=== PATIENT | female | born 1990 | race Caucasian/White ===

== ENCOUNTER 2016-05-12 14:36 | Emergency (ER) | payer MEDICAID ==
[~2016-05-12 14:36] MED LIST: PRENTAB72 PO
[2016-05-12 15:46] LABS: BLOOD, URINE NEG (NEG); COMMENT (UR) CULT NOT INDICATED; CULTURE IF INDICATED CULT NOT INDICATED; GLUCOSE,URINE NEG (NEG); KETONE, URINE NEG (NEG); NITRITE,URINE NEG (NEG); SQUAMOUS EPITHELIAL CELL URINE 1 /hpf (0-5); URINE COLOR LIGHT-YELLOW (YELLW/STRAW)
--- NOTE | 2016-05-12 15:57 | PD ---
HPI Chief Complaint Spotting mucous-like blood crampy pain watery mucous discharge Date Seen: May 12, 2016 Travel History International Travel<30 Days: No Contact w/Intl Traveler<30Days: No History of Present Illness HPI Patient is a 26-year-old white female 30 weeks gestation followed by Yonatan presents complaining of red spotting mucous-like blood when she wiped cramping pains and a watery mucous discharge. States that ever had bleeding in for scheduled, check that out. Baby is active heart rate tracing is reactive she is not thony Para: 2 : 3 History Obstetric History Obstetric History 2 vaginal deliveries Family History Family History: Negative Social History Alcohol Use: No Tobacco Use: No Substance Abuse: No Allergies-Medications (Allergen,Severity, Reaction): Coded Allergies: No Known Allergies (Verified , 11/14/15) Home Meds Reported Medications Vit W/ Ferrous Fumara () Tab1 Po 11/14/15 Physical Exam Narrative GENERAL: Well-nourished, well-developed patient. SKIN: Warm and dry. HEAD: Normocephalic and atraumatic. EYES: No scleral icterus. No injection or drainage. ENT: No nasal drainage noted. Mucous membranes pink. Airway patent. NECK: Supple, trachea midline. No JVD. CARDIOVASCULAR: Regular rate and rhythm without murmurs, gallops, or rubs. RESPIRATORY: Breath sounds equal bilaterally. No accessory muscle use. BREASTS: Bilateral exam showed no masses , no retractions, no nipple discharge. ABDOMEN/GI: Abdomen soft, non-tender, bowel sounds present, no rebound, no guarding Gravid to [-30] weeks size Fundal Height: [-29 cm] GENITOURINARY: External Genitalia: intact and normal in appearance, speculum exam done - no blood seen , no discharge that would indicate infection BUS glands: [-] Cervix: [-Posterior] large patulous appears friable no bleeding seen Dilatation: [0-] Effacement: [-0] Station: [-3] Presentation: [-] Membranes: [intact ]amnisure neg Uterine Contractions: [none-] FHT's: Category: [1-] Baseline: [133-] Reactive: [yes-] Variability: [mod-] Decels: [-none] EXTREMITIES: No cyanosis or edema. BACK: Nontender without obvious deformity. No CVA tenderness. NEUROLOGICAL: Awake and alert. Motor and sensory grossly within normal limits. Five out of 5 muscle strength in all muscle groups. Normal speech. Data Data Orders Urinalysis - C+S If Indicated (05/12/16 15:19) Labs amnisure negative Laboratory Tests Test 05/12/16 14:55 Urine Color LIGHT-YELLOW Urine Turbidity HAZY Urine pH 6.0 Urine Specific [place] 1.007 Urine Protein NEG Urine Glucose (UA) NEG Urine Ketones NEG Urine Occult Blood NEG Urine Nitrite NEG Urine Bilirubin NEG Urine Urobilinogen LESS THAN 2.0 Urine Leukocyte Esterase NEG Urine WBC 1 Urine Squamous Epithelial 1 Cells Microscopic Urinalysis Comment CULT NOT INDICATED MDM Medical Record Reviewed: No Interpretation(s) 30 week intrauterine with the minimal spotting mucous-like discharge and a negative amnio sure, no contractions cervix is closed, urinalysis negative , speculum exam was negative for blood or infection cervix is large and patulous somewhat swollen which is typical at 30 weeks and I described to the patient that physical digital exams and intercourse because her spot, just distress lifting Valsalva maneuver type activity can cause her to spot Plan Plan to discharge the patient home to bedrest for a day or so, just to keep an eye on any spotting issuesreturn for bleeding similar to a period or ruptured membranes or significant pain Diagnosis Diagnosis: Primary Impression: Spotting affecting in third trimester Additional Impression: Vaginal discharge during in third trimester Disposition: 01 DISCHARGE HOME Condition: Stable Patient Instructions: General Instructions, Early Labor Signs (ED), 24 Hour Urine Collection (GEN), Abdominal Pain in (ED) Additional Instructions: keep scheduled follow up appointment Departure Forms: Tests/Procedures Abel Bravo II, MD May 12, 2016 15:57
== END 2016-05-12 16:17 | disposition home or self-care (01) ==
LOC: HOBED 14:36
DX: O26.853 Spotting complicating pregnancy, third trimester (principal); N89.8 Other specified noninflammatory disorders of vagina; Z3A.30 30 weeks gestation of pregnancy
CPT/HCPCS: 81001; 84112; 99284

== ENCOUNTER 2016-05-29 13:32 | Observation (INO) | payer MEDICAID ==
[2016-05-29] VITALS (24 sets, daily range): BP systolic 111–114; BP diastolic 62–63; PULSE 74–117; RESP 17–18; TEMP 97.9
[2016-05-29] MEDS ORDERED: LACTATED RINGER'S 1000 ML INJ 1,000 ML IV ONE (14:30)
--- NOTE | 2016-05-29 14:35 | PD ---
HPI Chief Complaint Contractions Date Seen: May 29, 2016 Time Seen: 14:20 Travel History International Travel<30 Days: No Contact w/Intl Traveler<30Days: No Known Affected Area: No History of Present Illness HPI 26-year-old 002 at 32 weeks and 6 days of gestation, EDC 07/18/16, patient presents to OB ED complaining of frequent contractions occurring every 2 -3 minutes. Contraction is confirmed on tocodynamometry, patient noted to have contractions every 2-3 minutes. Patient reports vaginal fluid discharge, she stated that she had intercourse this morning. Amnisure (PAMG-1) test is negative. Patient denies vaginal bleeding and decreased movement. care is with the [facility] group of physicians, course is significant for hyperthyroidism. Para: 2 : 3 Miscarriage: 0 : 0 History Past Medical History Narrative Medical Hyperthyroidism Obstetric History Obstetric History Spontaneous vaginal delivery 2 Past Surgical History Narrative Surgical Denies Surgical History: No Previous Surgery Family History Narrative Family History Patient does not know family history, both and herself are adopted Social History Alcohol Use: No Tobacco Use: No Substance Abuse: No Allergies-Medications (Allergen,Severity, Reaction): Coded Allergies: No Known Allergies (Verified , 11/14/15) Home Meds Reported Medications Vit W/ Ferrous Fumara () Tab1 Po 11/14/15 Review of Systems Except as stated in HPI: all other systems reviewed are Neg Genitourinary: Discharge, Other (contractions) Physical Exam Narrative GENERAL: Well-nourished, well-developed patient. SKIN: Warm and dry. HEAD: Normocephalic and atraumatic. EYES: No scleral icterus. No injection or drainage. ENT: No nasal drainage noted. Mucous membranes pink. Airway patent. NECK: Supple, trachea midline. No JVD. CARDIOVASCULAR: Regular rate and rhythm without murmurs, gallops, or rubs. RESPIRATORY: Breath sounds equal bilaterally. No accessory muscle use. BREASTS: Bilateral exam showed no masses , no retractions, no nipple discharge. ABDOMEN/GI: Abdomen soft, gravid, non-tender, bowel sounds present, no rebound, no guarding Gravid to 33 weeks size Fundal Height: 33 cm GENITOURINARY: External Genitalia: intact and normal in appearance BUS glands: Normal Cervix: 1 cm, 60%, -2 station, posterior Dilatation: 1cm Effacement: 60% Station: -2 Presentation: Cephalic Membranes: Intact Uterine Contractions: Every 2-3 minutes FHT's: Category: one Baseline: 150s Reactive: Yes Variability: Moderate Decels: None EXTREMITIES: No cyanosis or edema. BACK: Nontender without obvious deformity. No CVA tenderness. NEUROLOGICAL: Awake and alert. Motor and sensory grossly within normal limits. Five out of 5 muscle strength in all muscle groups. Normal speech. Data Data Vital Signs Reviewed: Yes Orders Vital Signs (Adult) .ON ADMISSION (05/29/16 14:21) ^ Labor Status (05/29/16 14:21) Urinalysis - C+S If Indicated (05/29/16 14:21) ^ Non Stress Test (05/29/16 14:21) ^ Hydration (05/29/16 14:21) Diet Regular Basic (05/29/16 Dinner) Pamg-1 Test .ONCE (05/29/16 14:21) Lactated Ringer's 1000 Ml Inj (Lr 1000 M (05/29/16 14:21) Ob/Psych Drug Screen, Urine (05/29/16 14:21) Lr (Bolus) Inj (05/29/16 14:30) Terbutaline Inj (Brethine Inj) (05/29/16 14:30) MDM Medical Record Reviewed: Yes Diagnosis Diagnosis: Primary Impression: 33 weeks gestation of Additional Impression: labor in third trimester without delivery Patient Instructions: Early Labor Signs (ED), General Instructions, Labor (ED) Additional Instructions: We'll place patient in observation, we'll give terbutaline 0.5 mg subcutaneously every 25 minutes 1 doses for tocolysis, and nifedipine thereafter if contractions persist, we'll give betamethasone 12 mg intramuscularly every 24 hours 2 doses for lung maturity, will give IV fluid hydration, will send urine drug screen , continuous heart monitoring , send blood work. If contractions resolve we'll discharge patient to home with instructions to his cramping, contractions, leakage of fluids, vaginal bleeding or decreased movement. Drink plenty of fluids. Monitor kick counts. Keep office appointment as scheduled. Return Pelvic rest and nothing in the vagina for 1 week.. Reexamination shows patient with persistent contractions unresolved with IV hydration and terbutaline, we will start nifedipine for tocolysis. We will admit patient for 24-hour observation. Dr. Carmona is notified Suresh Cisneros MD May 29, 2016 14:35
[2016-05-29] MEDS: TERBUTALINE INJ 1 MG/ML AMP SQ SCH ×2 (14:52→15:17)
[2016-05-29] MEDS: LACTATED RINGER'S 1000 ML INJ 1,000 ML IV SCH ×2 (15:23→23:36)
[2016-05-29] MEDS ORDERED: BETAMETHASONE SOD PHOS/ACETATE SUSP 30 MG/5 ML VIAL IM SCH (16:00)
[2016-05-29 16:44] LABS: AUTOMATED NEUTROPHIL # 8.1 TH/MM3 (1.8-7.7); BASOPHIL % 0.3 % (0.0-2.0); EOSINOPHIL # 0.2 TH/MM3 (0-0.4); EOSINOPHIL % 1.6 % (0.0-4.0); HEMATOCRIT 39.9 % (35.0-46.0); HEMO FLAGS DIFF FINAL; LYMPHOCYTE # 2.4 TH/MM3 (1.0-4.8); MEAN CELL VOLUME 88.9 FL (80.0-100.0); MEAN CORPUSCULAR HEMOGLOBIN 30.4 PG (27.0-34.0); MEAN CORPUSCULAR HGB CONC 34.2 % (32.0-36.0); NEUT % 72.1 % (16.0-70.0); PLATELET COUNT 306 TH/MM3 (150-450); RED BLOOD COUNT 4.48 MIL/MM3 (4.00-5.30); RED CELL DISTRIBUTION WIDTH 12.6 % (11.6-17.2); WHITE BLOOD COUNT 11.2 TH/MM3 (4.0-11.0)
[2016-05-29 16:55] LABS: AMPHETAMINE, URINE NEG (NEG); BARBITURATES, URINE NEG (NEG); COCAINE, URINE NEG (NEG)
[2016-05-29 16:58] LABS: BACTERIA, URINE RARE /hpf; BLOOD, URINE NEG (NEG); COMMENT (UR) CULT NOT INDICATED; CULTURE IF INDICATED CULT NOT INDICATED; GLUCOSE,URINE NEG (NEG); KETONE, URINE NEG (NEG); NITRITE,URINE NEG (NEG); SQUAMOUS EPITHELIAL CELL URINE 3 /hpf (0-5); URINE COLOR YELLOW (YELLW/STRAW)
[2016-05-29] MEDS ORDERED: NIFEdipine 10 MG CAP PO ONE (17:45)
[2016-05-29] MEDS ORDERED: PRENATAL VITAMIN CHEWABLE TAB CHEW SCH (17:45)
[2016-05-29] MEDS ORDERED: NIFEdipine 10 MG CAP PO SCH (18:00)
[2016-05-29] MEDS: NIFEdipine 10 MG CAP PO SCH (23:35)
[2016-05-30] VITALS (18 sets, daily range): BP systolic 101–105; BP diastolic 50–51; PULSE 72–104; RESP 16–20; TEMP 98–98.5
[2016-05-30] MEDS ORDERED: ACETAMINOPHEN 325 MG TAB PO PRN (01:15)
[2016-05-30] MEDS ORDERED: ZOLPIDEM TARTRATE 5 MG TAB PO PRN (01:15)
[2016-05-30] MEDS: LACTATED RINGER'S 1000 ML INJ 1,000 ML IV SCH (06:19)
[2016-05-30] MEDS: NIFEdipine 10 MG CAP PO SCH (06:19)
--- NOTE | 2016-05-30 08:07 | PD.OB.ANTE ---
Subjective Interval History Quiet night had mild UCs she did not feel no leaking, bleeding Ucs began after intercourse yesterday GFM Antepartum ROS: Denies: New complaints, Loss of fluid, Vaginal bleeding, movement normal, Contractions, Other Objective Vital Signs Vital Signs Date Time Temp Pulse Resp B/P Pulse Ox O2 Delivery O2 Flow Rate FiO2 05/30/16 06:23 100 105/51 05/30/16 05:55 79 05/30/16 05:00 16 05/30/16 04:55 74 05/30/16 03:55 79 05/30/16 02:55 89 05/30/16 01:55 103 05/30/16 01:08 18 05/30/16 00:55 73 05/30/16 00:00 98.5 05/29/16 23:55 111 05/29/16 23:34 18 05/29/16 23:30 108 05/29/16 23:28 111/63 05/29/16 19:58 97.9 05/29/16 19:57 18 05/29/16 19:57 99 114/62 05/29/16 17:10 107 05/29/16 17:05 104 05/29/16 17:00 96 05/29/16 16:40 95 05/29/16 16:35 96 05/29/16 16:30 106 05/29/16 16:00 17 05/29/16 15:55 116 05/29/16 15:50 115 05/29/16 15:45 116 05/29/16 15:10 114 05/29/16 15:05 101 05/29/16 15:00 88 05/29/16 14:40 88 05/29/16 14:35 87 05/29/16 14:30 117 05/29/16 14:10 74 05/29/16 14:05 78 Lab & Micro Results Test 05/29/16 15:00 White Blood Count 11.2 TH/MM3 Red Blood Count 4.48 MIL/MM3 Hemoglobin 13.6 GM/DL Hematocrit 39.9 % Mean Corpuscular Volume 88.9 FL Mean Corpuscular Hemoglobin 30.4 PG Mean Corpuscular Hemoglobin 34.2 % Concent Red Cell Distribution Width 12.6 % Platelet Count 306 TH/MM3 Mean Platelet Volume 8.8 FL Neutrophils (%) (Auto) 72.1 % Lymphocytes (%) (Auto) 21.0 % Monocytes (%) (Auto) 5.0 % Eosinophils (%) (Auto) 1.6 % Basophils (%) (Auto) 0.3 % Neutrophils # (Auto) 8.1 TH/MM3 Lymphocytes # (Auto) 2.4 TH/MM3 Monocytes # (Auto) 0.6 TH/MM3 Eosinophils # (Auto) 0.2 TH/MM3 Basophils # (Auto) 0.0 TH/MM3 CBC Comment DIFF FINAL Differential Comment Urine Color YELLOW Urine Turbidity CLEAR Urine pH 6.0 Urine Specific [place] 1.013 Urine Protein NEG mg/dL Urine Glucose (UA) NEG mg/dL Urine Ketones NEG mg/dL Urine Occult Blood NEG Urine Nitrite NEG Urine Bilirubin NEG Urine Urobilinogen LESS THAN 2.0 MG/DL Urine Leukocyte Esterase SMALL Urine WBC 1 /hpf Urine Squamous Epithelial 3 /hpf Cells Urine Bacteria RARE /hpf Microscopic Urinalysis Comment CULT NOT INDICATED Urine Opiates Screen NEG Urine Barbiturates Screen NEG Urine Amphetamines Screen NEG Urine Benzodiazepines Screen NEG Urine Cocaine Screen NEG Urine Cannabinoids Screen NEG Physical Exam GENERAL: Well-nourished, well-developed patient. CARDIOVASCULAR: Regular rate and rhythm without murmurs, gallops, or rubs. RESPIRATORY: Breath sounds equal bilaterally. No accessory muscle use. ABDOMEN/GI: Abdomen soft, non-tender. fundus c.w dates cervix 1 cm thick and firm strip reactive EXTREMITIES: No cyanosis or edema, non-tender, without signs of DVT. Assessment and Plan Assessment and Plan stable with premature contractions essentially resolved home after second betamethasone pelvic rest return to office weekly Deisy Ascencio MD May 30, 2016 08:07
--- NOTE | 2016-05-30 08:08 | HHI.DCPOC ---
Discharge Care Plan Report Symptoms to Your Doctor -Temperate above 100.5 degrees -Redness, of incision or excessive or foul smelling drainage -Unusual pain or calf pain -Increased vaginal bleeding -Painful or difficulty urinating -Feelings of extreme sadness or anxiety after 2 weeks Goals to Promote Your Health * To prevent worsening of your condition and complications * To maintain your health at the optimal level Directions to Meet Your Goals Take your medications as prescribed Follow your dietary instruction Follow activity as directed Ensure plenty of rest for recovery Drink fluids for hydration Keep your appointments as scheduled Take your immunizations and boosters as scheduled If your symptoms worsen call your PCP, if no PCP go to Urgent Care Center or Emergency Room Smoking is Dangerous to Your Health. Avoid second hand smoke Call the 24-hour crisis hotline for domestic abuse at Deisy Ascencio MD May 30, 2016 08:08
[2016-06-02 12:45] LABS: ECSTASY (MDMA) UR NEG (NEG); HEROIN (6-ACETYLMORPHINE) UR NEG (NEG); K2 SPICE UR NEG (NEG); OBMETHADONE UR NEG (NEG); PHENCYCLIDINE URINE NEG (NEG)
[2016-06-02 12:46] LABS: BATH SALTS (MDPV) UR NEG (NEG); OXYCODONE (PERCODAN) NEG (NEG)
== END 2016-05-30 10:20 | disposition home or self-care (01) ==
LOC: HOBED 13:32 → H2EA 17:31
PROVIDERS: ADMIT Obstetrics & Gynecology; ATTEND Obstetrics & Gynecology
DX: O60.03 Preterm labor without delivery, third trimester (principal); Z3A.32 32 weeks gestation of pregnancy
CPT/HCPCS: 59025; 80307; 81001; 84112; 85025; 96360; 96361; 96372; 99285; G0378; G0481; J0702; J3105; J7120

== ENCOUNTER 2016-06-05 15:12 | Emergency (ER) | payer MEDICAID ==
[~2016-06-05 15:12] MED LIST changes: -IBUP-232 PO
--- NOTE | 2016-06-05 16:30 | PD ---
HPI Chief Complaint vaginal leaking Date Seen: Jun 05, 2016 Time Seen: 16:00 Travel History International Travel<30 Days: No Contact w/Intl Traveler<30Days: No Known Affected Area: No History of Present Illness HPI 26yo at 34w1d c/o feeling "wet" on her pantiliner throughout the weekend. No gush of fluid, no odor, no itching. Was here overnight last week for contractions, cervix was 1cm. Para: 2 : 3 Last Menstrual Period: Oct 11, 2015 History Past Medical History Narrative Medical Graves - euthyroid presently Obstetric History Obstetric History Past Surgical History Narrative Surgical None Family History Family History: Negative Social History Alcohol Use: No Tobacco Use: No Substance Abuse: No Allergies-Medications (Allergen,Severity, Reaction): Coded Allergies: No Known Allergies (Verified , 11/14/15) Home Meds Reported Medications Vit W/ Ferrous Fumara () Tab1 Po 11/14/15 Review of Systems General / Constitutional: No: Fever, Weight Gain, Chills, Other Eyes: No: Diploplia, Blurred Vision, Visual changes, Pain, Photophobia Cardiovascular: No: Irregular Rhythm, Chest Pain or Discomfort, Palpitations, Tachycardia, Syncope, Varicosities, Edema, Cyanosis Respiratory: No: Cough, Short of Breath, Other Gastrointestinal: No: Nausea, Vomiting, Diarrhea Genitourinary: No: Decreased Urinary Output, Oliguria Musculoskeletal: No: Limited ROM, Weakness, Cramping, Edema, Pain Skin: No Rash, No Itching, No Dryness, No Lumps, No Change in Pigmentation, No Change in Nails, No Alopecia, No Lesions Neurologic: No: Weakness, Dizziness, Syncope, Focal Abnormalities, Coordination Problem, Headache, Slurred Speech, Seizures Psychiatric: No: Depression, Suicidal Ideations, Homicidal Ideation Physical Exam Narrative GENERAL: Well-nourished, well-developed patient. SKIN: Warm and dry. HEAD: Normocephalic and atraumatic. EYES: No scleral icterus. No injection or drainage. ENT: No nasal drainage noted. Mucous membranes pink. Airway patent. NECK: Supple, trachea midline. No JVD. CARDIOVASCULAR: Regular rate and rhythm without murmurs, gallops, or rubs. RESPIRATORY: Breath sounds equal bilaterally. No accessory muscle use. BREASTS: Bilateral exam showed no masses , no retractions, no nipple discharge. ABDOMEN/GI: Abdomen soft, non-tender, bowel sounds present, no rebound, no guarding Gravid to 34weeks size Fundal Height: [-] GENITOURINARY: External Genitalia: intact and normal in appearance BUS glands: normal Cervix: posterior Dilatation: 1 Effacement: 50 Station: -2 Presentation: vertex Membranes: amnisure negative (intact) Uterine Contractions: absent FHT's: Category: [-] 1 Baseline: [-] 140 Reactive: [-] reactive Variability: [-] moderate Decels: [-] absent EXTREMITIES: No cyanosis or edema. BACK: Nontender without obvious deformity. No CVA tenderness. NEUROLOGICAL: Awake and alert. Motor and sensory grossly within normal limits. Five out of 5 muscle strength in all muscle groups. Normal speech. Data Data Vital Signs Reviewed: Yes [facility] Medical Record Reviewed: Yes Plan Discharge home with followup at OB office Diagnosis Diagnosis: Primary Impression: 34 weeks gestation of Additional Impression: Intact amniotic membranes during in third trimester Karey Mckeon MD Jun 05, 2016 16:17
== END 2016-06-05 16:31 | disposition home or self-care (01) ==
LOC: HOBED 15:12
DX: O26.893 Other specified pregnancy related conditions, third trimester (principal); Z3A.34 34 weeks gestation of pregnancy
CPT/HCPCS: 59025; 84112

== ENCOUNTER → 2016-06-05 | Outpatient (CLI) | payer MEDICAID ==
[~2016-06-05] MED LIST changes: +IBUP-232 PO
== END ==
LOC: CLAB 10:39
PROVIDERS: ATTEND Obstetrics & Gynecology
DX: Z67.41 Type O blood, Rh negative (principal); Z3A.31 31 weeks gestation of pregnancy
CPT/HCPCS: 36415; 86850; 86900; 86901; 90384; 96372; J2790

== ENCOUNTER 2016-06-23 17:43 | Inpatient (IN) | payer MEDICAID ==
[~2016-06-23] VITALS: Ht 165.1 cm; Wt 70.8 kg
[2016-06-23] MEDS ORDERED: LACTATED RINGER'S 1000 ML INJ 1,000 ML IV PRN (18:43)
--- NOTE | 2016-06-23 18:43 | HHI.HP ---
HPI Chief Complaint water Broke and contractions Date Seen: Jun 23, 2016 Travel History International Travel<30 Days: No Contact w/Intl Traveler<30Days: No Known Affected Area: No History of Present Illness HPI This patient is 26-year-old white she is a white female who is a at 36-1/ 2 weeks with spontaneous ruptured membranes and early labor. No vaginal bleeding noted baby is active heart rate tracing is reactive she is thony every 2-3 minutes. Para: 2 : 3 History Past Medical History Medical History: Denies Significant Hx Social History Alcohol Use: No Tobacco Use: No Substance Abuse: No Allergies-Medications (Allergen,Severity, Reaction): Coded Allergies: No Known Allergies (Verified , 11/14/15) Home Meds Reported Medications Vit W/ Ferrous Fumara () Tab1 Po 11/14/15 Review of Systems General / Constitutional: No: Fever, Weight Gain, Chills, Other Eyes: No: Diploplia, Blurred Vision, Visual changes, Pain, Photophobia HENT: No: Headaches, Vertigo, Lightheadedness Cardiovascular: No: Irregular Rhythm, Chest Pain or Discomfort, Palpitations, Tachycardia, Syncope, Varicosities, Edema, Cyanosis Respiratory: No: Cough, Short of Breath, Other Gastrointestinal: No: Nausea, Vomiting, Diarrhea Genitourinary: No: Decreased Urinary Output, Oliguria Musculoskeletal: No: Limited ROM, Weakness, Cramping, Edema, Pain Skin: No Rash, No Itching, No Dryness, No Lumps, No Change in Pigmentation, No Change in Nails, No Alopecia, No Lesions Neurologic: No: Weakness, Dizziness, Syncope, Focal Abnormalities, Coordination Problem, Headache, Slurred Speech, Seizures Psychiatric: No: Depression, Suicidal Ideations, Homicidal Ideation Endocrine: No: Heat Intolerance, Cold Intolerance, Polydipsia, Polyuria, Other Physical Exam Narrative GENERAL: Well-nourished, well-developed patient. SKIN: Warm and dry. HEAD: Normocephalic and atraumatic. EYES: No scleral icterus. No injection or drainage. ENT: No nasal drainage noted. Mucous membranes pink. Airway patent. NECK: Supple, trachea midline. No JVD. CARDIOVASCULAR: Regular rate and rhythm without murmurs, gallops, or rubs. RESPIRATORY: Breath sounds equal bilaterally. No accessory muscle use. BREASTS: Bilateral exam showed no masses , no retractions, no nipple discharge. ABDOMEN/GI: Abdomen soft, non-tender, bowel sounds present, no rebound, no guarding Gravid to [36-] weeks size Fundal Height: [-36] GENITOURINARY: External Genitalia: intact and normal in appearance BUS glands: [-] Cervix: [2-] Dilatation: [-2] Effacement: [ 60] Station: [-3] Presentation: [-vtx] Membranes: ruptured] Uterine Contractions: [-reg] FHT's: Category: [1-] Baseline: [-144] Reactive: [yes-] Variability: [-mod] Decels: [none] EXTREMITIES: No cyanosis or edema. BACK: Nontender without obvious deformity. No CVA tenderness. NEUROLOGICAL: Awake and alert. Motor and sensory grossly within normal limits. Five out of 5 muscle strength in all muscle groups. Normal speech. Data Data Orders Ob (2e) Additional Admit Info (06/23/16 18:19) Assessment/Plan Assessment and Plan The patient is a 26-year-old white female followed Dr. Galloway for care she's 36-1/2 weeks complaining of spontaneous rupture membranes and early labor. Heart rate tracing is reactive contractions are noted. amnisure positive. Lattice admit the patient for labor augmentation and anticipate vaginal delivery with call Dr. Abarca was covering and I per her physician Abel Bravo II, MD Jun 23, 2016 18:42
[2016-06-23] MEDS ORDERED: LIDOCAINE HCL 1% 50 ML VIAL I-DERMAL PRN (18:45)
[2016-06-23] MEDS ORDERED: OXYTOCIN 30 UNITS-500ML PREMIX 500 ML IV ONE (18:45)
[2016-06-23] MEDS ORDERED: LIDOCAINE HCL 1% 50 ML VIAL INFIL PRN (18:45)
[2016-06-23] MEDS ORDERED: MINERAL OIL 10 ML VIAL TOPICAL PRN (18:45)
[2016-06-23] MEDS ORDERED: OXYTOCIN 30 UNITS-500ML PREMIX 500 ML IV SCH (18:45)
[2016-06-23] MEDS ORDERED: CITRIC ACID-SODIUM CITRATE LIQ 30 ML UDC PO SCH (18:45)
[2016-06-23] MEDS ORDERED: SODIUM CHLORID 0.9% 500 ML INJ 500 ML IV PRN (18:45)
[2016-06-23 18:52] LABS: AUTOMATED NEUTROPHIL # 10.1 TH/MM3 (1.8-7.7); BASOPHIL # 0.1 TH/MM3 (0-0.2); BASOPHIL % 0.5 % (0.0-2.0); EOSINOPHIL # 0.1 TH/MM3 (0-0.4); HEMO FLAGS DIFF FINAL; LYMPH % 18.5 % (9.0-44.0); LYMPHOCYTE # 2.5 TH/MM3 (1.0-4.8); MEAN CELL VOLUME 88.5 FL (80.0-100.0); MONO % 5.6 % (0.0-8.0); NEUT % 74.4 % (16.0-70.0); PLATELET COUNT 244 TH/MM3 (150-450); RED BLOOD COUNT 4.29 MIL/MM3 (4.00-5.30); RED CELL DISTRIBUTION WIDTH 13.5 % (11.6-17.2); WHITE BLOOD COUNT 13.6 TH/MM3 (4.0-11.0)
[2016-06-23 18:55] LABS: BLOOD, URINE NEG (NEG); COMMENT (UR) CULT NOT INDICATED; CULTURE IF INDICATED CULT NOT INDICATED; GLUCOSE,URINE NEG (NEG); KETONE, URINE NEG (NEG); MUCUS URINE FEW /lpf (OCC); NITRITE,URINE NEG (NEG); PH, URINE 5.5 (5.0-8.5); SQUAMOUS EPITHELIAL CELL URINE 3 /hpf (0-5); URINE COLOR YELLOW (YELLW/STRAW)
[2016-06-23] MEDS ORDERED: PENICILLIN G POTASSIUM INJ 5,000,000 UNITS in SODIUM CHLORIDE 0.9% INJ 100 ML IV ONE (19:00)
[2016-06-23] MEDS ORDERED: SODIUM CHLOR 0.9% 1000 ML INJ 1,000 ML IV PRN (19:03)
[2016-06-23] MEDS: LACTATED RINGER'S 1000 ML INJ 1,000 ML IV SCH ×2 (19:41→23:12)
[2016-06-23 20:36] VITALS: TEMP 98.2
[2016-06-23 20:37] VITALS: RESP 18
[2016-06-23 20:38] VITALS: BP 110/63; PULSE 74
[2016-06-23] MEDS: PENICILLIN G POTASSIUM INJ 2,500,000 UNITS in SODIUM CHLORIDE 0.9% INJ 100 ML IV SCH ×2 (23:11→23:12)
[2016-06-24] MEDS ORDERED: fentaNYL 2MCG-BUPIV 0.125% INJ 100 ML ONE (00:17)
[2016-06-24 00:23] VITALS: RESP 18
--- NOTE | 2016-06-24 03:33 | PD.OB.DELI ---
Anesthesia: Epidural Episiotomy: None Vaginal Delivery: Normal Presentation: Occiput anterior Nuchal Cord: x1 Delayed cord clamping (45 sec): Yes : Female One Minute : 8 Five Minute : 9 Infant Care: Suctioned, Spontaneous crying Placenta: Spontaneous delivery, Intact, 3 vessel cord Laceration: No lacerations James Abarca MD Jun 24, 2016 03:33
[2016-06-24] MEDS ORDERED: BENZOCAINE 20% TOPICAL SPRAY 60 ML CAN TOPICAL PRN (03:45)
[2016-06-24] MEDS ORDERED: DOCUSATE SODIUM 50 MG/SENNA 8.6 MG TAB PO PRN (03:45)
[2016-06-24] MEDS ORDERED: WITCH HAZEL 50%/GLYCERIN 12.5% 40 PAD JAR TOPICAL PRN (03:45)
[2016-06-24] MEDS ORDERED: ALUMINUM/MAGNESIUM/SIMETH 30 ML CUP PO PRN (03:45)
[2016-06-24] MEDS ORDERED: OXYTOCIN 10 UNIT/ML AMP XX ONE (03:45)
[2016-06-24] MEDS ORDERED: SODIUM CHLORIDE 0.9% FLUSH 5 ML FLUSH IV PRN (03:45)
[2016-06-24] MEDS ORDERED: ONDANSETRON ODT 4 MG TAB PO PRN (03:45)
[2016-06-24] MEDS ORDERED: ZOLPIDEM TARTRATE 5 MG TAB PO PRN (03:45)
[2016-06-24] MEDS ORDERED: NO SYSTEM NARCOTICS XX PRN (04:00)
[2016-06-24] MEDS ORDERED: DO NOT ADMINISTER ANTICOAGULANTS XX PRN (04:00)
[2016-06-24] MEDS ORDERED: ePHEDrine/NS 25 MG/5 ML SYR IV PRN (04:00)
[2016-06-24] MEDS ORDERED: fentaNYL 2MCG-BUPIV 0.125% 100 ML EPIDURAL SCH (04:00)
[2016-06-24] MEDS: ACETAMINOPHEN 325 MG TAB PO PRN ×4 (06:03→22:02)
--- NOTE | 2016-06-24 11:20 | HHI.OB ---
Subjective Post Day: 0 Remarks Doing well,stable Objective Vitals/I&O Vital Signs Date Time Temp Pulse Resp B/P Pulse Ox O2 Delivery O2 Flow Rate FiO2 06/24/16 00:23 18 06/23/16 20:38 74 110/63 06/23/16 20:37 18 06/23/16 20:36 98.2 Objective Remarks GENERAL: Well-nourished, well-developed patient. CARDIOVASCULAR: Regular rate and rhythm without murmurs, gallops, or rubs. RESPIRATORY: Breath sounds equal bilaterally. No accessory muscle use. ABDOMEN/GI: Abdomen soft, non-tender. Fundus: Firm, non-tender at umbilicus. GENITOURINARY: Light to moderate bleeding. EXTREMITIES: No cyanosis or edema, non-tender, without signs of DVT. Medications and IVs Current Medications Medications (Trade) Dose Ordered Sig/Calli Route Start Time Stop Time Status Last Admin Lactated Ringer's 1,000 ml @ 125 mls/hr Q8H IV 06/23/16 18:43 06/23/16 23:12 Lactated Ringer's 1,000 ml @ 3,000 mls/hr Q20M PRN IV 06/23/16 18:43 Sodium Chloride 500 ml @ 1,000 mls/hr ONCE PRN IV 06/23/16 18:45 06/24/16 18:44 (NS 1000 ml Inj) 1,000 ml @ 100 mls/hr Q10H PRN IV 06/23/16 19:03 (fentaNYL INJ) 50 mcg Q1H PRN IV PUSH 06/23/16 18:45 Fentanyl Citrate 100 mcg 100 mcg Q1H PRN IV PUSH 06/23/16 18:45 (Pfizerpen-G Inj/ NS Inj) 100 ml @ 200 mls/hr Q4H IV 06/23/16 23:00 06/23/16 23:12 Mineral Oil 10 ml 10 ml UNSCH PRN TOPICAL 06/23/16 18:45 (Pitocin 30 Units-NS 500 ml Premix) 500 ml @ 0 mls/hr TITRATE IV 06/23/16 18:45 06/24/16 04:42 (NS Flush) 2 ml BID IV 06/24/16 09:00 (NS Flush) 2 ml UNSCH PRN IV 06/24/16 03:45 (Tylenol) 650 mg Q4H PRN PO 06/24/16 03:45 06/24/16 06:03 (Motrin) 600 mg Q6H PRN PO 06/24/16 03:45 (Americaine 20% Top Spr) 1 spray Q4H PRN TOPICAL 06/24/16 03:45 (Tucks Pads) 1 applic QID PRN TOPICAL 06/24/16 03:45 (Giovanna-Colace) 2 tab Q12H PRN PO 06/24/16 03:45 (Ambien) 5 mg HS PRN PO 06/24/16 03:45 (M-M-R Ii Inj) 0.5 ml ONCE ONCE SQ 06/24/16 16:00 06/24/16 16:01 (Boostrix Inj) 0.5 ml ONCE ONCE IM 06/24/16 16:00 06/24/16 16:01 (Mag-Al Plus Susp Liq) 15 ml Q8H PRN PO 06/24/16 03:45 (Zofran Odt) 4 mg Q6H PRN PO 06/24/16 03:45 Miscellaneous Information No systemic narcotics to be given except... UNSCH PRN XX 06/24/16 04:00 06/25/16 03:59 Miscellaneous Information DO NOT ADMINISTER ANY ANTICOAGUL... UNSCH PRN XX 06/24/16 04:00 06/25/16 03:59 (fentaNYL 2MCG-BUPIV 0.125% INJ) 100 ml @ 0 mls/hr TITRATE EPIDURAL 06/24/16 04:00 (ePHEDrine/NS 25 MG/5 ML SYR) 10 mg UNSCH PRN IV 06/24/16 04:00 06/25/16 03:59 Assessment/Plan Assessment and Plan PPD#0, Stable, stable, History GBS+ Discharge Planning Does not meet criteria Attending Attestation seen by James Beard MD Jun 24, 2016 11:19
[2016-06-24] MEDS: IBUPROFEN 600 MG TAB PO PRN ×2 (11:30→17:54)
[2016-06-24] MEDS ORDERED: MEASLES, MUMPS, RUBELLA VACCINE 0.5 ML VIAL SQ ONE (16:00)
[2016-06-24] MEDS ORDERED: DIPHTH/TETANUS/ACEL PERTUSSIS (BOOSTER) 0.5 ML VIAL/PFS IM ONE (16:00)
[2016-06-24] MEDS: SODIUM CHLORIDE 0.9% FLUSH 5 ML FLUSH IV SCH (20:42)
[2016-06-25] MEDS: IBUPROFEN 600 MG TAB PO PRN ×5 (00:08→22:54)
[2016-06-25] MEDS: ACETAMINOPHEN 325 MG TAB PO PRN ×5 (05:22→22:54)
--- NOTE | 2016-06-25 08:46 | HHI.OB ---
Subjective Post Day: 1 Remarks doing well. third baby no stitches not nursing Objective Objective Remarks GENERAL: Well-nourished, well-developed patient. CARDIOVASCULAR: Regular rate and rhythm without murmurs, gallops, or rubs. RESPIRATORY: Breath sounds equal bilaterally. No accessory muscle use. ABDOMEN/GI: Abdomen soft, non-tender. Fundus: Firm, non-tender at umbilicus. GENITOURINARY: Light to moderate bleeding. EXTREMITIES: No cyanosis or edema, non-tender, without signs of DVT. Medications and IVs Current Medications Medications (Trade) Dose Ordered Sig/Calli Route Start Time Stop Time Status Last Admin Lactated Ringer's 1,000 ml @ 125 mls/hr Q8H IV 06/23/16 18:43 06/23/16 23:12 Lactated Ringer's 1,000 ml @ 3,000 mls/hr Q20M PRN IV 06/23/16 18:43 (NS 1000 ml Inj) 1,000 ml @ 100 mls/hr Q10H PRN IV 06/23/16 19:03 (fentaNYL INJ) 50 mcg Q1H PRN IV PUSH 06/23/16 18:45 Fentanyl Citrate 100 mcg 100 mcg Q1H PRN IV PUSH 06/23/16 18:45 (Pfizerpen-G Inj/ NS Inj) 100 ml @ 200 mls/hr Q4H IV 06/23/16 23:00 06/23/16 23:12 Mineral Oil 10 ml 10 ml UNSCH PRN TOPICAL 06/23/16 18:45 (Pitocin 30 Units-NS 500 ml Premix) 500 ml @ 0 mls/hr TITRATE IV 06/23/16 18:45 06/24/16 04:42 (NS Flush) 2 ml BID IV 06/24/16 09:00 (NS Flush) 2 ml UNSCH PRN IV 06/24/16 03:45 (Tylenol) 650 mg Q4H PRN PO 06/24/16 03:45 06/25/16 05:22 (Motrin) 600 mg Q6H PRN PO 06/24/16 03:45 06/25/16 05:21 (Americaine 20% Top Spr) 1 spray Q4H PRN TOPICAL 06/24/16 03:45 06/24/16 20:24 (Tucks Pads) 1 applic QID PRN TOPICAL 06/24/16 03:45 06/24/16 20:24 (Giovanna-Colace) 2 tab Q12H PRN PO 06/24/16 03:45 (Ambien) 5 mg HS PRN PO 06/24/16 03:45 06/25/16 00:08 (Mag-Al Plus Susp Liq) 15 ml Q8H PRN PO 06/24/16 03:45 Ondansetron HCl 4 mg 4 mg Q6H PRN PO 06/24/16 03:45 (fentaNYL 2MCG-BUPIV 0.125% INJ) 100 ml @ 0 mls/hr TITRATE EPIDURAL 06/24/16 04:00 Assessment/Plan Assessment and Plan PPD#1;Stable, infant stable, History GBS+ Discharge Planning Discharge home on saturday Deisy Ascencio MD Jun 25, 2016 08:46
[2016-06-25] MEDS: SODIUM CHLORIDE 0.9% FLUSH 5 ML FLUSH IV SCH (09:00)
[2016-06-26] MEDS: ACETAMINOPHEN 325 MG TAB PO PRN ×2 (02:46→08:53)
[2016-06-26] MEDS: IBUPROFEN 600 MG TAB PO PRN ×2 (04:43→10:48)
[2016-06-26] MEDS: PENICILLIN G POTASSIUM INJ 2,500,000 UNITS in SODIUM CHLORIDE 0.9% INJ 100 ML IV SCH ×2 (07:00→11:00)
[2016-06-26] MEDS ORDERED: IBUP-232 PO (08:16)
--- NOTE | 2016-06-26 08:16 | HHI.DCPOC ---
Discharge Care Plan Diagnosis: (1) delivery Your Health Problems Are: Vaginal delivery Report Symptoms to Your Doctor -Temperate above 100.5 degrees -Redness, of incision or excessive or foul smelling drainage -Unusual pain or calf pain -Increased vaginal bleeding -Painful or difficulty urinating -Feelings of extreme sadness or anxiety after 2 weeks Goals to Promote Your Health * To prevent worsening of your condition and complications * To maintain your health at the optimal level Directions to Meet Your Goals Take your medications as prescribed Follow your dietary instruction Follow activity as directed Ensure plenty of rest for recovery Drink fluids for hydration Keep your appointments as scheduled Take your immunizations and boosters as scheduled If your symptoms worsen call your PCP, if no PCP go to Urgent Care Center or Emergency Room Smoking is Dangerous to Your Health. Avoid second hand smoke Call the 24-hour crisis hotline for domestic abuse at Alina Galloway MD Jun 26, 2016 08:16
--- NOTE | 2016-06-26 08:18 | HHI.OB ---
Subjective Post Day: 2 Remarks Doing well, min lochia Objective Objective Remarks GENERAL: Well-nourished, well-developed patient. CARDIOVASCULAR: Regular rate and rhythm without murmurs, gallops, or rubs. RESPIRATORY: Breath sounds equal bilaterally. No accessory muscle use. ABDOMEN/GI: Abdomen soft, non-tender. Fundus: Firm, non-tender at umbilicus. GENITOURINARY: Light to moderate bleeding. EXTREMITIES: No cyanosis or edema, non-tender, without signs of DVT. Medications and IVs Current Medications Medications (Trade) Dose Ordered Sig/Calli Route Start Time Stop Time Status Last Admin Lactated Ringer's 1,000 ml @ 125 mls/hr Q8H IV 06/23/16 18:43 06/23/16 23:12 Lactated Ringer's 1,000 ml @ 3,000 mls/hr Q20M PRN IV 06/23/16 18:43 (NS 1000 ml Inj) 1,000 ml @ 100 mls/hr Q10H PRN IV 06/23/16 19:03 (fentaNYL INJ) 50 mcg Q1H PRN IV PUSH 06/23/16 18:45 Fentanyl Citrate 100 mcg 100 mcg Q1H PRN IV PUSH 06/23/16 18:45 (Pfizerpen-G Inj/ NS Inj) 100 ml @ 200 mls/hr Q4H IV 06/23/16 23:00 06/23/16 23:12 Mineral Oil 10 ml 10 ml UNSCH PRN TOPICAL 06/23/16 18:45 (Pitocin 30 Units-NS 500 ml Premix) 500 ml @ 0 mls/hr TITRATE IV 06/23/16 18:45 06/24/16 04:42 (NS Flush) 2 ml BID IV 06/24/16 09:00 (NS Flush) 2 ml UNSCH PRN IV 06/24/16 03:45 (Tylenol) 650 mg Q4H PRN PO 06/24/16 03:45 06/26/16 02:46 (Motrin) 600 mg Q6H PRN PO 06/24/16 03:45 06/26/16 04:43 (Americaine 20% Top Spr) 1 spray Q4H PRN TOPICAL 06/24/16 03:45 06/24/16 20:24 (Tucks Pads) 1 applic QID PRN TOPICAL 06/24/16 03:45 06/24/16 20:24 (Giovanna-Colace) 2 tab Q12H PRN PO 06/24/16 03:45 06/25/16 14:30 (Ambien) 5 mg HS PRN PO 06/24/16 03:45 06/25/16 00:08 (Mag-Al Plus Susp Liq) 15 ml Q8H PRN PO 06/24/16 03:45 Ondansetron HCl 4 mg 4 mg Q6H PRN PO 06/24/16 03:45 (fentaNYL 2MCG-BUPIV 0.125% INJ) 100 ml @ 0 mls/hr TITRATE EPIDURAL 06/24/16 04:00 Assessment/Plan Assessment and Plan PPD#2;Stable, stable d/c today Alina Galloway MD Jun 26, 2016 08:18
[2016-06-26] MEDS: SODIUM CHLORIDE 0.9% FLUSH 5 ML FLUSH IV SCH (08:47)
[2016-06-26] MEDS: LACTATED RINGER'S 1000 ML INJ 1,000 ML IV SCH (08:47)
== END 2016-06-26 11:50 | disposition home or self-care (01) | DRG 775 ==
LOC: HOBED 17:43 → H2EB 18:25 → H1EA 06-24 08:25
PROVIDERS: ADMIT Obstetrics & Gynecology; ATTEND Obstetrics & Gynecology
PROC: 10E0XZZ Delivery of Products of Conception, External Approach (ICD-10-PCS; principal; 2016-06-24)
PROC: 00HU33Z Insertion of Infusion Device into Spinal Canal, Percutaneous Approach (ICD-10-PCS; 2016-06-24)
PROC: 3E0R3CZ (ICD-10-PCS; 2016-06-24)
DX: O69.81X0 Labor and delivery complicated by cord around neck, without compression, not applicable or unspecified (principal); O99.824 Streptococcus B carrier state complicating childbirth; Z37.0 Single live birth; Z3A.36 36 weeks gestation of pregnancy
CPT/HCPCS: 81001; 84112; 85025; 85461; 86077; 86850; 86870; 86900; 86901; 90384; 99285; J2540; J2590; J2790; J7120

== ENCOUNTER 2016-10-16 17:05 | Emergency (ER) | payer SELFPAY ==
[~2016-10-16] VITALS: Ht 165.1 cm; Wt 63.2 kg
[~2016-10-16 17:05] MED LIST changes: +IBUP-232 PO
[2016-10-16 17:21] VITALS: BP 124/75; PULSE 112; RESP 16; TEMP 98; O2SAT 99
--- NOTE | 2016-10-16 17:25 | PD ---
HPI Chief Complaint: Abdominal Pain Time Seen by Provider: 17:15 Travel History International Travel<30 days: No Contact w/Intl Traveler<30days: No Traveled to known affect area: No History of Present Illness HPI 26yo F with no PMH presents to the ED with c/o epigastric, RUQ pain for 1 week. States it is intermittent, and worst about 30 minutes after eating. +Nausea. Denies any fever, chest pain, sob, vomiting, focal weakness or numbness. Took peptol bismol and did not help. PFSH Past Medical History ADHD: No Cancer: No Cardiovascular Problems: No Diabetes: No Diminished Hearing: No Endocrine: Yes (hyperthyroidism) Headaches: No Hepatitis: No Psychiatric: No Immunizations Current: Yes Migraines: Yes Seizures: Yes Thyroid Disease: Yes (hyperactive thyroid) Ulcer: No ?: Not LMP: last week Menopausal: No : 2 Para: 2 Past Surgical History Appendectomy: No Section: No Cholecystectomy: No Other Surgery: No Social History Alcohol Use: No Tobacco Use: No Substance Use: No Allergies-Medications (Allergen,Severity, Reaction): Coded Allergies: No Known Allergies (Verified , 10/16/16) Reported Meds & Prescriptions Reported Meds & Active Scripts Active Review of Systems Except as stated in HPI: all other systems reviewed are Neg Physical Exam Narrative GENERAL: 26yo F not in distress. SKIN: Focused skin assessment warm/dry. HEAD: Atraumatic. Normocephalic. EYES: Pupils equal and round. No scleral icterus. No injection or drainage. ENT: No nasal bleeding or discharge. Mucous membranes pink and moist. NECK: Trachea midline. No JVD. CARDIOVASCULAR: Regular rate and rhythm. No murmur appreciated. RESPIRATORY: No accessory muscle use. Clear to auscultation. Breath sounds equal bilaterally. GASTROINTESTINAL: Abdomen soft, mild RUQ ttp. No rebound tenderness or guarding. No RLQ pain. MUSCULOSKELETAL: No obvious deformities. No clubbing. No cyanosis. No edema. NEUROLOGICAL: Awake and alert. No obvious cranial nerve deficits. Motor grossly within normal limits. Normal speech. PSYCHIATRIC: Appropriate mood and affect; insight and judgment normal. Data Data Last Documented VS Vital Signs Date Time Temp Pulse Resp B/P Pulse Ox O2 Delivery O2 Flow Rate FiO2 10/16/16 18:40 16 10/16/16 18:07 98 119/60 98 Room Air 10/16/16 17:21 98.0 Orders Basic Metabolic Panel (Bmp) (10/16/16 17:22) Complete Blood Count With Diff (10/16/16 17:22) Lipase (10/16/16 17:22) Urinalysis - C+S If Indicated (10/16/16 17:22) Us Abdomen Gallbladder (10/16/16 ) Iv Access Insert/Monitor (10/16/16 17:22) Ecg Monitoring (10/16/16 17:22) Oximetry (10/16/16 17:22) Sodium Chloride 0.9% Flush (Ns Flush) (10/16/16 17:30) Ed Urine Pregnancytest Poc (10/16/16 17:22) Hepatic Functional Panel (10/16/16 17:22) Ondansetron Inj (Zofran Inj) (10/16/16 17:30) Ketorolac Inj (Toradol Inj) (10/16/16 17:30) Labs Laboratory Tests Test 10/16/16 10/16/16 17:36 17:41 Urine Collection Type CLEAN CATCH Urine Color YELLOW Urine Turbidity CLEAR Urine pH 6.5 Urine Specific [place] 1.027 Urine Protein NEG mg/dL Urine Glucose (UA) NEG mg/dL Urine Ketones TRACE mg/dL Urine Occult Blood NEG Urine Nitrite NEG Urine Bilirubin NEG Urine Leukocyte Esterase NEG Urine WBC 3-5 /hpf Urine Squamous Epithelial > 8 /hpf Cells Urine Bacteria RARE /hpf Microscopic Urinalysis Comment CULT NOT INDICATED Urine Collection Time 17:36 White Blood Count 6.5 TH/MM3 Red Blood Count 4.89 MIL/MM3 Hemoglobin 14.3 GM/DL Hematocrit 42.0 % Mean Corpuscular Volume 85.9 FL Mean Corpuscular Hemoglobin 29.2 PG Mean Corpuscular Hemoglobin 34.0 % Concent Red Cell Distribution Width 10.6 % Platelet Count 339 TH/MM3 Mean Platelet Volume 8.0 FL Neutrophils (%) (Auto) 56.1 % Lymphocytes (%) (Auto) 31.7 % Monocytes (%) (Auto) 7.1 % Eosinophils (%) (Auto) 4.0 % Basophils (%) (Auto) 1.1 % Neutrophils # (Auto) 3.5 TH/MM3 Lymphocytes # (Auto) 2.1 TH/MM3 Monocytes # (Auto) 0.5 TH/MM3 Eosinophils # (Auto) 0.3 TH/MM3 Basophils # (Auto) 0.1 TH/MM3 CBC Comment DIFF FINAL Differential Comment Sodium Level 142 MEQ/L Potassium Level 3.8 MEQ/L Chloride Level 107 MEQ/L Carbon Dioxide Level 25.7 MEQ/L Anion Gap 9 MEQ/L Blood Urea Nitrogen 17 MG/DL Creatinine 0.51 MG/DL Estimat Glomerular Filtration 148 ML/MIN Rate Random Glucose 101 MG/DL Calcium Level 9.4 MG/DL Total Bilirubin 0.3 MG/DL Direct Bilirubin 0.1 MG/DL Indirect Bilirubin 0.2 MG/DL Aspartate Amino Transf 17 U/L (AST/SGOT) Alanine Aminotransferase 41 U/L (ALT/SGPT) Alkaline Phosphatase 93 U/L Total Protein 7.3 GM/DL Albumin 3.6 GM/DL Lipase 155 U/L [facility] Medical Decision Making Medical Screen Exam Complete: Yes Emergency Medical Condition: Yes Interpretation(s) Laboratory Tests Test 10/16/16 10/16/16 17:36 17:41 Urine Collection Type CLEAN CATCH Urine Color YELLOW (YELLW/STRAW) Urine Turbidity CLEAR (CLEAR) Urine pH 6.5 (5.0-8.5) Urine Specific [place] 1.027 (1.002-1.035) Urine Protein NEG mg/dL (NEG-TRACE) Urine Glucose (UA) NEG mg/dL (NEG) Urine Ketones TRACE mg/dL (NEG) Urine Occult Blood NEG (NEG) Urine Nitrite NEG (NEG) Urine Bilirubin NEG (NEG) Urine Leukocyte Esterase NEG (NEG) Urine WBC 3-5 /hpf (0-5) Urine Squamous Epithelial > 8 /hpf (0-5) Cells Urine Bacteria RARE /hpf (NONE) Microscopic Urinalysis Comment CULT NOT INDICATED Urine Collection Time 17:36 White Blood Count 6.5 TH/MM3 (4.0-11.0) Red Blood Count 4.89 MIL/MM3 (4.00-5.30) Hemoglobin 14.3 GM/DL (11.6-15.3) Hematocrit 42.0 % (35.0-46.0) Mean Corpuscular Volume 85.9 FL (80.0-100.0) Mean Corpuscular Hemoglobin 29.2 PG (27.0-34.0) Mean Corpuscular Hemoglobin 34.0 % Concent (32.0-36.0) Red Cell Distribution Width 10.6 % (11.6-17.2) Platelet Count 339 TH/MM3 (150-450) Mean Platelet Volume 8.0 FL (7.0-11.0) Neutrophils (%) (Auto) 56.1 % (16.0-70.0) Lymphocytes (%) (Auto) 31.7 % (9.0-44.0) Monocytes (%) (Auto) 7.1 % (0.0-8.0) Eosinophils (%) (Auto) 4.0 % (0.0-4.0) Basophils (%) (Auto) 1.1 % (0.0-2.0) Neutrophils # (Auto) 3.5 TH/MM3 (1.8-7.7) Lymphocytes # (Auto) 2.1 TH/MM3 (1.0-4.8) Monocytes # (Auto) 0.5 TH/MM3 (0-0.9) Eosinophils # (Auto) 0.3 TH/MM3 (0-0.4) Basophils # (Auto) 0.1 TH/MM3 (0-0.2) CBC Comment DIFF FINAL Differential Comment Sodium Level 142 MEQ/L (136-145) Potassium Level 3.8 MEQ/L (3.5-5.1) Chloride Level 107 MEQ/L (98-107) Carbon Dioxide Level 25.7 MEQ/L (21.0-32.0) Anion Gap 9 MEQ/L (5-15) Blood Urea Nitrogen 17 MG/DL (7-18) Creatinine 0.51 MG/DL (0.50-1.00) Estimat Glomerular Filtration 148 ML/MIN Rate (>89) Random Glucose 101 MG/DL (74-106) Calcium Level 9.4 MG/DL (8.5-10.1) Total Bilirubin 0.3 MG/DL (0.2-1.0) Direct Bilirubin 0.1 MG/DL (0.0-0.2) Indirect Bilirubin 0.2 MG/DL (0.0-0.8) Aspartate Amino Transf 17 U/L (15-37) (AST/SGOT) Alanine Aminotransferase 41 U/L (10-53) (ALT/SGPT) Alkaline Phosphatase 93 U/L (45-117) Total Protein 7.3 GM/DL (6.4-8.2) Albumin 3.6 GM/DL (3.4-5.0) Lipase 155 U/L (73-393) Last Impressions Gall Bladder Ultrasound 10/16/16 0000 Signed Impressions: Service Date/Time: Sunday, October 16, 2016 18:16 - CONCLUSION: Cholelithiasis without evidence of cholecystitis or biliary obstruction. Subcentimeter nonobstructing stone in the right kidney. Feng Russ MD Differential Diagnosis Acute cholecystitis vs. biliary colic vs. UTI vs. pancreatitis vs. peptic ulcer disease Narrative Course 26yo F with intermittent right upper abdominal pain after eating. Pt is well appearing. Labs reviewed, no leukocytosis. CMP unremarkable. Lipase normal. Normal liver enzymes and bilirubin. UA showed squamous cells. Culture not indicated. VS stable. Pt given toradol and zofran. negative. Pt reevaluated at bedside and states she has no abdominal pain and not nauseous now. Abdomen is soft, NT/ND. US showed cholelithiasis without evidence of cholecystitis or biliary obstruction. Return precautions given. Diagnosis Primary Impression: Cholelithiasis Qualified Code: K80.20 - Calculus of gallbladder without cholecystitis without obstruction Referrals: Maxim Chavarria MD call for appointment Cholelithiasis. Possible elective cholecystectomy. Patient Instructions: General Instructions Departure Forms: Tests/Procedures Additional Instructions: Please follow up with general surgery as outpatient if pain continues to discuss possible elective cholecystectomy. Please return to the ED if symptoms worsen. Med/Other Pt SpecificInfo: No Change to Meds Disposition: 01 DISCHARGE HOME Condition: Stable Sindy Chairez DO Oct 16, 2016 17:25
[2016-10-16] MEDS ORDERED: SODIUM CHLORIDE 0.9% FLUSH 10 ML FLUSH IV FLUSH PRN (17:30)
[2016-10-16] MEDS ORDERED: KETOROLAC TROMETHAMINE 30 MG/ML (IVP) VIAL IV PUSH ONE (17:30)
[2016-10-16] MEDS ORDERED: ONDANSETRON HCL 4 MG/2 ML VIAL IV PUSH ONE (17:30)
[2016-10-16 17:44] VITALS: O2SAT 97
[2016-10-16 17:58] LABS: AUTOMATED NEUTROPHIL # 3.5 TH/MM3 (1.8-7.7); BASOPHIL # 0.1 TH/MM3 (0-0.2); BASOPHIL % 1.1 % (0.0-2.0); EOSINOPHIL # 0.3 TH/MM3 (0-0.4); HEMO FLAGS DIFF FINAL; LYMPH % 31.7 % (9.0-44.0); LYMPHOCYTE # 2.1 TH/MM3 (1.0-4.8); MEAN CELL VOLUME 85.9 FL (80.0-100.0); MEAN CORPUSCULAR HEMOGLOBIN 29.2 PG (27.0-34.0); MONO % 7.1 % (0.0-8.0); NEUT % 56.1 % (16.0-70.0); PLATELET COUNT 339 TH/MM3 (150-450); RED BLOOD COUNT 4.89 MIL/MM3 (4.00-5.30); RED CELL DISTRIBUTION WIDTH 10.6 % (11.6-17.2); WHITE BLOOD COUNT 6.5 TH/MM3 (4.0-11.0)
[2016-10-16 17:58] LABS: BLOOD, URINE NEG (NEG); GLUCOSE,URINE NEG (NEG); KETONE, URINE TRACE mg/dL (NEG); NITRITE,URINE NEG (NEG); PH, URINE 6.5 (5.0-8.5)
[2016-10-16 18:02] LABS: METHOD OF COLLECTION CLEAN CATCH; URINE COLOR YELLOW (YELLW/STRAW)
[2016-10-16 18:03] LABS: BACTERIA, URINE RARE /hpf; COMMENT (UR) CULT NOT INDICATED; CULTURE IF INDICATED CULT NOT INDICATED; SQUAMOUS EPITHELIAL CELL URINE > 8 /hpf (0-5)
[2016-10-16 18:07] VITALS: BP 119/60; PULSE 98; RESP 16; O2SAT 98
[2016-10-16 18:08] LABS: POTASSIUM 3.8 MEQ/L (3.5-5.1)
[2016-10-16 18:12] LABS: BICARBONATE 25.7 MEQ/L (21.0-32.0)
[2016-10-16 18:17] LABS: INDIRECT BILIRUBIN 0.2 MG/DL (0.0-0.8); TOTAL BILIRUBIN ADULT 0.3 MG/DL (0.2-1.0)
--- NOTE | 2016-10-16 18:42 | RADHPO ---
EXAM DATE/TIME: 10/16/2016 18:16 [facility] COMPARISON: No previous studies available for comparison. INDICATIONS : Right upper quadrant pain. MEDICAL HISTORY : Hyperthyroidism. Seizures. Right upper quadrant pain. SURGICAL HISTORY : None. ENCOUNTER: Initial ACUITY: 1 week PAIN SCORE: 5/10 LOCATION: Right upper quadrant MEASUREMENTS: LIVER: 14.0 cm length COMMON DUCT: 4 mm RIGHT KIDNEY: 9.7 x 4.4 x 5.8 cm FINDINGS: LIVER: Normal echotexture without focal lesion or ductal dilatation. COMMON DUCT: No intraluminal mass or stone visualized. GALLBLADDER: Packed with numerous small to medium stones. No wall thickening or pericholecystic fluid. Negative so nographic Jack's sign. PANCREAS: The visualized portions are within normal limits. RIGHT KIDNEY: 7 mm right mid zone stone. No hydronephrosis. CONCLUSION: Cholelithiasis without evidence of cholecystitis or biliary obstruction. Subcentimeter nonobstructing stone in the right kidney. Feng Russ MD on October 16, 2016 at 18:40 Board Certified Radiologist. This report was verified electronically.
[2016-10-16 19:02] VITALS: BP 135/71; PULSE 120; RESP 20; TEMP 98.7; O2SAT 100
== END 2016-10-16 19:23 | disposition home or self-care (01) ==
LOC: PHED 17:05
DX: K80.20 Calculus of gallbladder without cholecystitis without obstruction (principal); N20.0 Calculus of kidney
CPT/HCPCS: 76705; 80048; 80076; 81001; 83690; 84703; 85025; 96374; 96375; 99285; J1885; J2405